=== PATIENT | female | born 1995 | race Caucasian/White ===

== ENCOUNTER 2020-09-05 13:21 | Inpatient (IN) ==
[2020-09-05] MEDS ORDERED: Ketorolac 15 MG/ML VIAL IVP ONE (15:25)
[2020-09-05 16:00] LABS: Basophils % 0.2 %; Eosinophils # 0.1 K/mcL (0.0-0.6); Eosinophils % 0.9 %; Hematocrit 43.9 % (35.3-44.9); Hemoglobin 14.2 g/dL (11.5-15.4); Immature Granulocytes % 0.3 % (0-4); Lymphocytes # 2.1 K/mcL (0.6-4.6); Lymphocytes % 20.5 %; Mean Corpuscular HGB Conc 32.3 g/dL (31.6-35.5); Mean Corpuscular Hemoglobin 26.7 pg (28.0-33.3); Mean Corpuscular Volume 82.7 fL (83.0-100.0); Mean Platelet Volume 9.9 fL (9.4-12.4); Monocytes # 1.1 K/mcL (0.0-1.3); Monocytes % 10.9 %; Neutrophils # 6.8 K/mcL (1.6-8.9); Platelet Count 201 K/mcL (140-400); Red Blood Count 5.31 M/mcL (3.82-4.97); Red Cell Distribution Width 12.8 % (11.5-14.5); Segmented Neutrophils % 67.2 %
[2020-09-05] MEDS ORDERED: Ketorolac 15 MG/ML VIAL IM ONE (16:07)
[2020-09-05 16:22] LABS: BUN/Creatinine Ratio 13 (6-26); Blood Urea Nitrogen 7 mg/dL (6-20); Calcium 9.2 mg/dL (8.6-10.3); Carbon Dioxide 21 mEq/L (23-29); Chloride 106 mEq/L (98-107); Glucose 88 mg/dL (70-105); Osmolality,Calculated 279 (280-300); Potassium 3.6 mEq/L (3.5-5.1); Sodium 136 mEq/L (136-145); eGFR For African Americans > 60 (> 60); eGFR For Non-African Americans > 60 (> 60)
[2020-09-05 16:23] LABS: Troponin I < 0.03 ng/mL (< 0.04)
[2020-09-05] MEDS ORDERED: Aspirin 325 MG TABLET PO ONE (16:31)
[2020-09-05 16:33] LABS: D-Dimer 1273 ng/mLFEU (0-500)
[2020-09-05] MEDS ORDERED: Isovue-370 500 ML BOTTLE IVP ONE (16:35)
[2020-09-05] MEDS ORDERED: *HR* Heparin 5,000 UNIT/ML VIAL IVP ONE (16:35)
[2020-09-05] MEDS ORDERED: *HR* Heparin 5,000 UNIT/ML VIAL IVP PRN (16:35)
[2020-09-05 16:52] LABS: Heparin anti-factor XA UFH < 0.04 IU/mL (0.30-0.70)
[2020-09-05 16:53] LABS: INR 1.1; Prothrombin Time 13.2 Seconds (9.4-12.1)
[2020-09-05] MEDS: Heparin 25,000UNIT/250ML 1/2NS 25,000 UNIT/250 ML IV.SOLN IVC SCH (17:41)
[2020-09-05] MEDS ORDERED: Naloxone 0.4 MG/ML INJ IVP PRN (19:46)
[2020-09-05] MEDS ORDERED: *HR* Promethazine 25 MG/ML VIAL IVP PRN (19:46)
[2020-09-05] MEDS ORDERED: Perflutren Lipid Microsphere 1.3 ML in 0.9 % Sodium Chloride 8.7 ML IVP PRN (19:50)
[2020-09-05] MEDS ORDERED: Ipratropium/Albuterol Neb 3 ML IH PRN (20:32)
[2020-09-05] MEDS: 0.9 % Sodium Chloride 1,000 ML IVC SCH (21:37)
[2020-09-05] MEDS: Acetaminophen 325 MG TABLET PO PRN (21:45)
[2020-09-06] MEDS: *HR* Heparin 5,000 UNIT/ML VIAL IVP PRN ×2 (00:27→07:25)
[2020-09-06 03:59] LABS: Bacteria,Urine Few per hpf (None-Few); Bilirubin,Urine Negative (Negative); Blood,Urine Large (Negative); Clarity,Urine Turbid (Clear); Color,Urine Yellow (Yellow); Glucose,Urine (UA) 150 mg/dL (Normal); Ketones,Urine 60 mg/dL (Negative); Leukocyte Esterase,Urine Large (Negative); Mucus,Urine Few per lpf (None-Few); Nitrite,Urine Negative (Negative); PH,Urine 6.5 pH Units (5.0-8.0); Protein,Urine 70 mg/dL (Neg-Trace); RBC,Urine TNTC per hpf (0-3); Specific Gravity,Urine > 1.030 (1.010-1.025); Squamous Epithelial Cell,Urine Moderate per hpf (None-Few); WBC,Urine TNTC per hpf (0-3)
[2020-09-06 04:27] LABS: Alanine Aminotransferase 20 Units/L (7-52); Albumin 3.7 g/dL (3.5-5.7); Albumin/Globulin Ratio 1.1 (1.1-2.2); Alkaline Phosphatase 41 Units/L (34-104); Aspartate Amino Transferase 14 Units/L (13-39); BUN/Creatinine Ratio 18 (6-26); Bilirubin,Total 0.3 mg/dL (0.3-1.0); Blood Urea Nitrogen 10 mg/dL (6-20); Calcium 8.6 mg/dL (8.6-10.3); Carbon Dioxide 18 mEq/L (23-29); Chloride 109 mEq/L (98-107); Chol/HDL Ratio 5.4 (0-4.9); Cholesterol 177 mg/dL (< 200); Globulin 3.3 g/dL (2.4-3.5); Glucose 141 mg/dL (70-105); HDL Cholesterol 33 mg/dL (40-59); LDL Cholesterol,Calculated 91 mg/dL (< 100); Magnesium 2.1 mg/dL (1.6-2.6); Osmolality,Calculated 283 (280-300); Phosphorous 2.4 mg/dL (2.7-4.5); Potassium 3.5 mEq/L (3.5-5.1); Sodium 136 mEq/L (136-145); Triglycerides 267 mg/dL (< 150); eGFR For African Americans > 60 (> 60); eGFR For Non-African Americans > 60 (> 60)
[2020-09-06 04:38] LABS: Amphetamine Screen,Urine Negative ng/mL (Cutoff=1000); Barbiturate Screen,Urine Negative ng/mL (Cutoff=200); Benzodiazepines Screen,Urine Negative ng/mL (Cutoff=200); Cannabinoid Screen,Urine Negative ng/mL (Cutoff = 50); Cocaine Screen,Urine Negative ng/mL (Cutoff= 300); Opiate Screen,Urine Negative ng/mL (Cutoff=300); Phencyclidine Screen,Urine Negative ng/mL (Cutoff=25)
[2020-09-06 05:27] LABS: Thyroid Stimulating Hormone 4.063 mcIU/mL (0.340-5.600)
[2020-09-06] MEDS: Ketorolac 30 MG/ML VIAL IVP PRN ×2 (07:27→17:18)
[2020-09-06] MEDS: 0.9 % Sodium Chloride 1,000 ML IVC SCH (09:50)
[2020-09-06 12:36] LABS: Basophils % 0.2 %; Eosinophils % 0.2 %; Hematocrit 41.5 % (35.3-44.9); Hemoglobin 13.3 g/dL (11.5-15.4); Immature Granulocytes % 0.4 % (0-4); Lymphocytes # 1.7 K/mcL (0.6-4.6); Lymphocytes % 15.1 %; Mean Corpuscular Hemoglobin 26.6 pg (28.0-33.3); Mean Platelet Volume 10.1 fL (9.4-12.4); Monocytes # 1.1 K/mcL (0.0-1.3); Monocytes % 9.5 %; Neutrophils # 8.3 K/mcL (1.6-8.9); Platelet Count 207 K/mcL (140-400); Red Cell Distribution Width 12.8 % (11.5-14.5); Segmented Neutrophils % 74.6 %; White Blood Count 11.1 K/mcL (4.3-11.1)
[2020-09-06] MEDS: Heparin 25,000UNIT/250ML 1/2NS 25,000 UNIT/250 ML IV.SOLN IVC SCH (14:05)
[2020-09-06 15:00] LABS: Source,Synovial Fluid Right knee
[2020-09-06 16:11] LABS: Appearance,Synovial Fluid Cloudy (Clear-Hazy); Color,Synovial Fluid Amber (Straw)
[2020-09-06] MEDS ORDERED: Acetaminophen IV 1,000 MG/100 ML INFUS..BTL IVPB ONE (22:30)
[2020-09-06] MEDS ORDERED: Famotidine 20 MG/2 ML VIAL IVP ONE (22:30)
[2020-09-06] MEDS ORDERED: Famotidine 20 MG/2 ML VIAL ONE (22:51)
[2020-09-06] MEDS ORDERED: Vancomycin 1,750 MG/517.5 ML IV.SOLN IVPB ONE (23:02)
[2020-09-06] MEDS ORDERED: Bupivacaine/EPI 1:200k 0.25% 50 ML VIAL ONE (23:22)
[2020-09-06] MEDS ORDERED: *HR* Propofol 200 MG/20 ML VIAL IVP ONE ×2 (23:26→23:56)
[2020-09-06] MEDS ORDERED: Ondansetron 4 MG/2 ML VIAL ONE (23:26)
[2020-09-06] MEDS ORDERED: *HR* FentaNYL (PF) 100 MCG/2 ML VIAL ONE ×2 (23:26→23:54)
[2020-09-06] MEDS ORDERED: *HR* Midazolam HCl 2 MG/2 ML VIAL ONE (23:26)
[2020-09-06] MEDS ORDERED: Dexamethasone 4 MG/ML VIAL ONE (23:26)
[2020-09-06] MEDS ORDERED: Lidocaine -MPF 2% 2 ML VIAL ONE ×2 (23:26→23:28)
[2020-09-06] MEDS: Piperacillin/Tazobactam 3.375 GM in 0.9 % Sodium Chloride Mini Bag 100 ML IVPB SCH (23:55)
[2020-09-07] MEDS ORDERED: *HR* HYDROMORPHONE 2 MG/ML VIAL ONE (00:16)
[2020-09-07] MEDS ORDERED: *HR* OxyCODONE Immed Rel 5 MG TABLET PO PRN (01:04)
[2020-09-07] MEDS ORDERED: Ondansetron 4 MG/2 ML VIAL IVP PRN (01:04)
[2020-09-07] MEDS: Ketorolac 30 MG/ML VIAL IVP PRN (02:10)
[2020-09-07 03:37] LABS: Basophils % 0.1 %; Hematocrit 39.5 % (35.3-44.9); Hemoglobin 12.3 g/dL (11.5-15.4); Immature Granulocytes % 0.5 % (0-4); Lymphocytes # 0.9 K/mcL (0.6-4.6); Lymphocytes % 6.7 %; Mean Corpuscular HGB Conc 31.1 g/dL (31.6-35.5); Mean Corpuscular Hemoglobin 26.5 pg (28.0-33.3); Mean Corpuscular Volume 84.9 fL (83.0-100.0); Mean Platelet Volume 9.7 fL (9.4-12.4); Monocytes # 0.7 K/mcL (0.0-1.3); Neutrophils # 12.2 K/mcL (1.6-8.9); Platelet Count 212 K/mcL (140-400); Red Blood Count 4.65 M/mcL (3.82-4.97); Segmented Neutrophils % 87.7 %; White Blood Count 13.9 K/mcL (4.3-11.1)
[2020-09-07 03:57] LABS: BUN/Creatinine Ratio 18 (6-26); Blood Urea Nitrogen 9 mg/dL (6-20); Calcium 8.5 mg/dL (8.6-10.3); Carbon Dioxide 16 mEq/L (23-29); Chloride 113 mEq/L (98-107); Glucose 131 mg/dL (70-105); Osmolality,Calculated 286 (280-300); Phosphorous 2.9 mg/dL (2.7-4.5); Potassium 3.9 mEq/L (3.5-5.1); Sodium 138 mEq/L (136-145); eGFR For African Americans > 60 (> 60); eGFR For Non-African Americans > 60 (> 60)
[2020-09-07] MEDS ORDERED: Regadenoson 0.4 MG/5 ML SYRINGE IVP ONE (05:59)
[2020-09-07] MEDS: Piperacillin/Tazobactam 3.375 GM in 0.9 % Sodium Chloride Mini Bag 100 ML IVPB SCH ×2 (09:17→16:46)
[2020-09-07 13:55] LABS: C-Reactive Protein 249 mg/L (Less than 10)
[2020-09-07] MEDS ORDERED: Fluconazole 150 MG TABLET PO ONE (14:28)
[2020-09-07] MEDS: Nicotine 21 MG PATCH.TD24 TD SCH (16:45)
[2020-09-07] MEDS: *HR* Heparin 5,000 UNIT/ML VIAL SQ SCH (16:46)
[2020-09-08] MEDS: Piperacillin/Tazobactam 3.375 GM in 0.9 % Sodium Chloride Mini Bag 100 ML IVPB SCH ×2 (00:59→08:59)
[2020-09-08] MEDS: Acetaminophen 325 MG TABLET PO PRN (02:02)
[2020-09-08] MEDS: *HR* Heparin 5,000 UNIT/ML VIAL SQ SCH (05:11)
[2020-09-08 07:38] LABS: Basophils % 0.2 %; Eosinophils # 0.1 K/mcL (0.0-0.6); Eosinophils % 1.1 %; Hematocrit 36.5 % (35.3-44.9); Hemoglobin 11.8 g/dL (11.5-15.4); Immature Granulocytes % 0.4 % (0-4); Lymphocytes # 2.9 K/mcL (0.6-4.6); Lymphocytes % 31.6 %; Mean Corpuscular HGB Conc 32.3 g/dL (31.6-35.5); Mean Corpuscular Hemoglobin 27.2 pg (28.0-33.3); Mean Corpuscular Volume 84.1 fL (83.0-100.0); Monocytes # 0.6 K/mcL (0.0-1.3); Monocytes % 6.8 %; Neutrophils # 5.5 K/mcL (1.6-8.9); Platelet Count 252 K/mcL (140-400); Red Blood Count 4.34 M/mcL (3.82-4.97); Red Cell Distribution Width 12.8 % (11.5-14.5); Segmented Neutrophils % 59.9 %; White Blood Count 9.2 K/mcL (4.3-11.1)
[2020-09-08 07:59] VITALS: BP 108/67
[2020-09-08] MEDS ORDERED: Vancomycin 1,250 MG/262.5 ML IV.SOLN IVPB SCH (08:00)
[2020-09-08 08:02] LABS: BUN/Creatinine Ratio 18 (6-26); Blood Urea Nitrogen 8 mg/dL (6-20); Calcium 8.3 mg/dL (8.6-10.3); Carbon Dioxide 21 mEq/L (23-29); Chloride 111 mEq/L (98-107); Glucose 106 mg/dL (70-105); Osmolality,Calculated 287 (280-300); Phosphorous 2.3 mg/dL (2.7-4.5); Potassium 3.5 mEq/L (3.5-5.1); Sodium 139 mEq/L (136-145); eGFR For African Americans > 60 (> 60); eGFR For Non-African Americans > 60 (> 60)
[2020-09-08] MEDS: Nicotine 21 MG PATCH.TD24 TD SCH (09:00)
== END 2020-09-08 10:59 | disposition left against medical advice (07) | DRG 720 ==
LOC: 3BNU 13:21 → EMEROOARM 13:21 → 3BNU 19:44 → 3NENU 09-06 18:54
PROVIDERS: ADMIT Internal Medicine; ATTEND Internal Medicine